=== PATIENT | female | born 1995 | race Caucasian/White ===

== ENCOUNTER 2017-08-29 20:49 | Emergency (ER) | payer BC ==
[2017-08-29] MEDS ORDERED: Lidocaine 1% with EPINEPHrine 1:100,000 20 ML MDV INJECT ONE (20:57)
--- NOTE | 2017-08-29 21:29 | EDM.PDOC ---
ED HPI GENERAL MEDICAL PROBLEM - General Chief Complaint: Laceration Stated Complaint: CUT r HAND Time Seen by Provider: 08/29/17 20:57 Source of Information: Reports: Patient History Limitations: Reports: No Limitations - History of Present Illness INITIAL COMMENTS - FREE TEXT/NARRATIVE: Patient is a 22 year old female that presents to the ER. Patient reports that she was carving the top off of a pumpkin with a knife when she accidentally cut her left thumb. Patient denies any other injuries. Onset: Today Onset Date: 08/29/17 Onset Time: 19:30 Associated Symptoms: Reports: No Other Symptoms Left Hand Pain Score (Numeric/FACES): 8 - Related Data Allergies Allergy/AdvReac Type Severity Reaction Status Date / Time No Known Allergies Allergy Verified 08/29/17 20:50 Home Meds: Home Meds . [No Known Home Meds] 08/29/17 [History] Past Medical History - Past Surgical History HEENT Surgical History: Reports: Tonsillectomy Social & Family History - Family History Family Medical History: Noncontributory - Tobacco Use Smoking Status *Q: Never Smoker - Recreational Drug Use Recreational Drug Use: No ED ROS GENERAL - Review of Systems Review Of Systems: See Below Constitutional: Reports: No Symptoms HEENT: Reports: No Symptoms Respiratory: Reports: No Symptoms Cardiovascular: Reports: No Symptoms Endocrine: Reports: No Symptoms GI/Abdominal: Reports: No Symptoms : Reports: No Symptoms Musculoskeletal: Reports: No Symptoms Skin: Reports: Wound (laceration left thumb) Neurological: Reports: No Symptoms Psychiatric: Reports: No Symptoms Hematologic/Lymphatic: Reports: No Symptoms Immunologic: Reports: No Symptoms ED EXAM, SKIN/RASH Exam: See Below Exam Limited By: No Limitations General Appearance: Alert, WD/WN, No Apparent Distress Respiratory/Chest: No Respiratory Distress, Lungs Clear Cardiovascular: Normal Peripheral Pulses, Regular Rate, Rhythm Peripheral Pulses: 2+: Brachial (R), Radial (L) Extremities: Normal Range of Motion, Non-Tender, No Pedal Edema, Normal Capillary Refill Psychiatric: Anxious, Tearful Skin: Warm, Dry, Normal Color, No Rash, Wound/Incision (laceration left thumb base dorsal aspect. Pulses +2, cap refill < 2sec, sensory/motor function intact. Neurovascular intact. ) ED SKIN PROCEDURES - Laceration/Wound Repair Left Finger Lac/Wound length In cm: 1.5 Appearance: Superficial Distal NVT: Neuro & Vascular Intact, No Tendon Injury Anesthetic Type: Local Local Anesthesia - Lidocaine (Xylocaine): 1% with EPI Local Anesthetic Volume: 1cc Skin Prep: Chlorhexidine (Hibiciens) Exploration/Debridement/Repair: Wound Explored, In a Bloodless Field, Explored to Base, No Foreign Material Found Closed with: Sutures Suture Size: other (5-0, c-3.) # of Sutures: 4 Suture Type: Nylon Tetanus Status Addressed: Yes Complications: No Course - Vital Signs Last Recorded V/S: Last Vital Signs Temp 99.1 F 08/29/17 20:52 Pulse 82 08/29/17 20:52 Resp 18 08/29/17 20:52 BP Pulse Ox 96 08/29/17 20:52 - Orders/Labs/Meds Meds: Medications Discontinued Medications Generic Name Dose Route Start Last Admin Trade Name [place] PRN Reason Stop Dose Admin Lidocaine/Epinephrine 20 ml 08/29/17 20:57 08/29/17 20:59 Xylocaine 1% With Epinephrine 1:100,000 INJECT 08/29/17 20:58 20 ml ONETIME ONE Administration Departure - Departure Time of Disposition: 21:25 Disposition: Home, Self-Care 01 Condition: Good Clinical Impression: Laceration - Discharge Information Instructions: Laceration Care, Adult, [id number], Stitches, [place], or Adhesive Wound Closure, [id number] Referrals: PCP,Unobtain [Primary Care Provider] - Forms: ED Department Discharge Additional Instructions: Followup with clinic in about 7 days for suture removal Return to the ER for worsening of condition or any emergent concerns such as redness, fever, drainage, vomiting, infection. Wash the area gently with soap and water twice a day, rinse, pat dry. Keep clean, dry, covered. Thumb splint as needed as reminder not to bend thumb at stitches location [place] pumpkins instead of carving as needed Tylenol or Motrin for pain - Assessment/Plan Plan: PLEASE SEE RN NOTE FOR PFSH.
== END 2017-08-29 21:34 | disposition home or self-care (01) ==
LOC: CC.ED 20:49
DX: S61.012A Laceration without foreign body of left thumb without damage to nail, initial encounter (principal); W26.0XXA Contact with knife, initial encounter
CPT/HCPCS: 12001; 96372; 99283